=== PATIENT | male | born 1950 | race Caucasian/White ===

== ENCOUNTER 2019-02-12 13:12 | Inpatient (IN) | payer OTHER, MEDICARE ==
[~2019-02-12] VITALS: Ht 185.4 cm; Wt 99.8 kg
--- NOTE | 2019-02-12 14:00 | NUR ---
Note Pt ambulated to room from admitting office with crutches. Pt's by his side. Pt admitted to room. Oriented to nursing routines and procedures at this time. Pt and his were shown how to use call light and room house phone. Pt given hospital gown to get into.
[2019-02-12 14:30] VITALS: BP_SYST 109
[2019-02-12] MEDS ORDERED: LOSA50TA3 PO (15:03)
[2019-02-12] MEDS ORDERED: HYDR12.55 PO (15:03)
[2019-02-12] MEDS ORDERED: FINA5TAB3 PO (15:03)
[2019-02-12] MEDS ORDERED: ATEN-41 PO (15:03)
[2019-02-12] MEDS ORDERED: SIMV40TA2 PO (15:03)
[2019-02-12] MEDS ORDERED: HYT1 PO (15:03)
[2019-02-12] MEDS ORDERED: ASPI-1155 PO (15:03)
[2019-02-12] MEDS ORDERED: POTA10TA21 PO (15:03)
[2019-02-12] MEDS ORDERED: ONDANSETRON HCL 4 MG/2 ML VIAL IM PRN (15:15)
[2019-02-12] MEDS ORDERED: ATENOLOL 25 MG TABLET(TENORMIN) PO ONE (15:15)
[2019-02-12] MEDS ORDERED: MORPHINE 4 MG/ML INJ. SYRINGE IVP PRN (15:15)
[2019-02-12] MEDS ORDERED: fentaNYL CITRATE/PF 100 MCG/2 ML AMP IVP PRN ×2 (15:30)
[2019-02-12] MEDS ORDERED: ONDANSETRON HCL 4 MG/2 ML VIAL IVP PRN (15:30)
[2019-02-12 15:50] LABS: BASOPHILS % (AUTO) 0.6 % (0.0-2.0); EOSINOPHILS # (AUTO) 0.2 K/uL (0.0-0.4); EOSINOPHILS % (AUTO) 2.6 % (0.0-4.0); HEMATOCRIT 38.6 % (36-54); HEMOGLOBIN 13.1 g/dL (14.0-18.0); LYMPHOCYTES # (AUTO) 1.4 K/uL (1.0-5.5); LYMPHOCYTES % (AUTO) 22.7 % (20.5-51.5); MEAN CORPUSCULAR HEMOGLOBIN 31 pg (27-31); MEAN CORPUSCULAR HGB CONC 34 % (32-36); MEAN CORPUSCULAR VOLUME 92 fL (79.0-98.0); MONOCYTES # (AUTO) 0.6 K/uL (0.0-1.0); MONOCYTES % (AUTO) 9.7 % (1.7-9.3); NEUTROPHILS # (AUTO) 4.1 K/uL (1.8-7.7); NEUTROPHILS % (AUTO) 64.4 % (40.0-70.0); PLATELET COUNT (AUTO) 238 K/uL (130-430); RED BLOOD CELL COUNT(AUTO) 4.22 MIL/uL (4.2-6.2); RED CELL DISTRIBUTION WIDTH 14.3 % (9.0-15.0); WHITE BLOOD COUNT (AUTO) 6.3 K/uL (4.8-10.8)
[2019-02-12 15:57] LABS: CALCIUM 9.4 mg/dL (8.4-11.0); CREATININE 1.51 mg/dL (0.55-1.30); POTASSIUM 3.9 mmol/L (3.5-5.1)
--- NOTE | 2019-02-12 16:00 | NUR ---
Note Pt in hospital gown and has IV in left hand. Pt's admission assessment completed at this time. Dr Diego put in orders for lab draws and UA. EKG was also done at this time. Consent signed and questions/concerns were answered at this time. Call light within reach.
[2019-02-12 16:01] LABS: ALBUMIN 3.2 g/dL (3.4-4.8); TOTAL BILIRUBIN 0.8 mg/dL (0.0-1.0)
[2019-02-12 16:03] LABS: BILIRUBIN,URINE NEGATIVE (NEGATIVE); BLOOD, URINE NEGATIVE (NEGATIVE); CLARITY/URINE CLEAR (CLEAR); COLOR,URINE YELLOW (YELLOW); GLUCOSE,URINE NEGATIVE (NEGATIVE); KETONES,URINE NEGATIVE (NEGATIVE); LEUKOCYTE ESTERASE ,URINE NEGATIVE (NEGATIVE); NITRITE, URINE NEGATIVE (NEGATIVE); PH,URINE 5.5 (5.0-8.0); PROTEIN URINE NEGATIVE (NEGATIVE); UROBILINOGEN,URINE 0.2 (0.2-1.0)
[2019-02-12 16:05] VITALS: BP_SYST 109
[2019-02-12] MEDS ORDERED: MIDAZOLAM HCL 5 MG/5 ML VIAL IVP ONE (16:05)
[2019-02-12] MEDS ORDERED: BUPIVACAINE /DEX PF 0.75% SPINAL 2 ML AMP INJ ONE (16:05)
[2019-02-12] MEDS ORDERED: LR 1,000 ML IV.SOLN IV ONE (16:05)
[2019-02-12] MEDS ORDERED: LEVOFLOXACIN 500 MG/D5W 100 ML PIGGYBACK IV ONE (16:05)
[2019-02-12] MEDS ORDERED: NS IRRIG SOLN 1000 ML IR ONE (16:05)
--- NOTE | 2019-02-12 16:20 | NUR ---
Note Pt was given CHG bath and labs and UA results printed and in chart at this time. Dr Mosquera (anesthesiologist) spoke to pt at bedside and answered questions/concerns. Surgical consent signed and in chart as well. Pt off the floor to OR at this time via bed. Pt's went to OR waiting room.
[2019-02-12] MEDS ORDERED: KCL 20 mEq in D5/0.45NS 1000mL 1,000 ML IV SCH (16:30)
[2019-02-12] MEDS ORDERED: HYDROcodone/ACETAMIN 7.5-325 MG TAB PO PRN (17:30)
[2019-02-12] MEDS: LEVOFLOXACIN 500 MG/D5W 100 ML IV SCH (18:29)
--- NOTE | 2019-02-12 18:50 | NUR ---
Note Pt returned from PACU at 1810. Pt AAOX4. Right foot wrapped in surgical wrap. Sensation not present from waist down due to spinal anesthesia given. Pt denies any pain/discomfort at this time. Pt's IV in left forearm intact and patent. IVPB antibiotic was started (Levaquin IVPB). Pt sitting up in bed and eating his regular dinner. No SOB/resp distress noted at this time. Pt watching television. Pt was checked on q1' and PRN all shift for needs and care. Call light within reach.
[2019-02-12 19:00] VITALS: BP_SYST 123
--- NOTE | 2019-02-12 19:15 | NUR ---
change of shift.pt.presents s/p surgery;02/12/19.pt.received an epidural.to provide neuro-assessment.pt.presents quiescent affect;calm.viewing tv programing.initial assessment;neuro;pt.stated the lower extremities are numb/cannot provided movement. tactile stimulation;pt.stated he cannot feel the tactile stimulation;skin temp;warm hue;pink;pale.iv acces intact;lr iv fluids infusing.call light/telephone w/in the reach of the pt.urinal w/in reach of the pt.v/s per s/p surgery protocol in progress.
[2019-02-12 20:00] VITALS: BP_SYST 123
--- NOTE | 2019-02-12 20:00 | NUR ---
pt.assessed.v/s assessed;values w/in normal limits.no c/o pain.neuro-assessment attended to.i have inspected the urinal;clean. pt.sated he cannot feel the groin area.to continue assessment of the capacity to urinate.iv access intact;patent.iv fluids infusing. general; status stable.respiratory status stable;unlabored @room air;02-sat%=100%.pt.assessed for cleanliness.pt.repositioned. call light/telephone placed w/in the reach of the pt.
--- NOTE | 2019-02-12 21:00 | NUR ---
2100p medications administered.i have inspected the urinal;clean.i inquired if the pt.is urinating.pt.stated;no,he has not urinated.
[2019-02-12] MEDS: TERAZOSIN HCL 5 MG CAPSULE (HYTRIN) PO SCH (21:42)
[2019-02-12] MEDS: SIMVASTATIN 40 MG TABLET PO SCH (21:42)
[2019-02-12] MEDS: NORMAL SALINE 5 ML DISP.SYRIN IVF SCH (21:42)
--- NOTE | 2019-02-12 22:00 | NUR ---
pt.assessed.pt.presents quiescent affect;calm,.viewing tv programming.pt.stated he is regaining the capacity to feel tactile stimulation and provide digit movement;rt.foot.pt sat he cannot feel the groin area.i have attended to bladder scan.pt.presents urinary retention:1.2l;volume. i am to page ;surgeon.re;urinary retention status.call light/telephone placed w/in the reach of the pt.
--- NOTE | 2019-02-12 22:30 | NUR ---
;surgeon has returned the page.i apprised of the pt's status;urinary retention;volume;1.2l. has ordered delaney catheter;indwelling to be placed.
--- NOTE | 2019-02-12 23:00 | NUR ---
i have placed the delaney catheter;indwelling w/out obstruction;urine return;content present w/in collection chamber corresponding to the urinary retention volume.
--- NOTE | 2019-02-13 | NUR ---
pt.assessed.v/s assessed.values w.in normal limits.i have assessed the delaney catheter;intact;patent;urine content present. neuro-assessment attended to.pt.capable to provide movement of the lower extremities.no c/o pain.general status stable. respiratory status stable@room air.pt.capable to reposition self.call light/telephone placed w/in the reach of the pt.
[2019-02-13 00:39] VITALS: BP_SYST 121
--- NOTE | 2019-02-13 02:00 | NUR ---
pr.assessed.delaney catheter assessed;intact;patent;urine content present.pt.presents quiescent affect;calm,somnolent. iv acces intact;locked;pt.capable to reposition self.general status stable.respiratory status stable.call light/telephone w/in the reach of the pt.
--- NOTE | 2019-02-13 04:00 | NUR ---
pt.assessed.delaney catheter assessed;intact;patent.urine content presents.iv access;intact;patent.pt.presents quiescent affect, calm,somnolent.general status stable.respiratory status stale;unlabored @room air.pt.capable to reposition self.call light/telephone placed w/in reach of the pt.
[2019-02-13] MEDS: NORMAL SALINE 5 ML DISP.SYRIN IVF SCH ×3 (05:51→22:15)
--- NOTE | 2019-02-13 06:56 | NUR ---
pt.assessed.delaney cath assessed;intact;patent;urine content presents.pt.capable to provide full movement digits;x5 rt.foot;leg and the let foot/leg.pt.remains bedrest status.iv access; intact;patent.general status stable.respiratory status stable;call light/telephone w/in the reach of the pt.
--- NOTE | 2019-02-13 07:15 | NUR ---
has right foot dressing dry and intact. with bilateral scds in placed.
--- NOTE | 2019-02-13 07:15 | NUR ---
received report at the bedside from anjelica nurse. patient aaox 4. breathing even and unlabored. abdomen soft and non distended. has iv access on the left forearm #20. saline lock. bed in low position, alarmed and locked. call lights within reach. instructed to call for assistance. fall/safety precaution maintained. vitals signs stable and afebrile.
--- NOTE | 2019-02-13 08:00 | NUR ---
had dressing on the rt foot dry and intact. with scds on both legs.
--- NOTE | 2019-02-13 09:13 | NUR ---
due medication given at this time. with water.
[2019-02-13] MEDS: FINASTERIDE 5 MG TABLET (PROSCAR) PO SCH (09:14)
[2019-02-13] MEDS: LOSARTAN POTASSIUM 50 MG TABLET (COZAAR) PO SCH (09:15)
[2019-02-13] MEDS: HYDROCHLOROTHIAZIDE 12.5 MG CAPSULE (HCTZ) PO SCH (09:15)
[2019-02-13 11:40] VITALS: BP_SYST 125
--- NOTE | 2019-02-13 12:00 | NUR ---
HAD LUNCH TRAY 100% FOOD CONSUMED.
--- NOTE | 2019-02-13 15:03 | NUR ---
PATIENT RESTING AT THIS TIME. NO PAIN NOR ACUTE DISTRESS NOTED.
[2019-02-13 16:25] VITALS: BP_SYST 103
--- NOTE | 2019-02-13 16:33 | NUR ---
patient asleep at this time.
[2019-02-13] MEDS: LEVOFLOXACIN 500 MG/D5W 100 ML IV SCH (17:12)
--- NOTE | 2019-02-13 17:14 | NUR ---
levaquin iv hanged at this time. stable
--- NOTE | 2019-02-13 17:47 | NUR ---
patient had dinner tray. verbalized looks good at this time.
--- NOTE | 2019-02-13 18:16 | NUR ---
patient stable. no complained made so far no pain noted. both toes can wiggles. good pulses noted. no tingling or numbness noted on the leg and feet.
--- NOTE | 2019-02-13 19:30 | NUR ---
Opening Note Received patient awake, AOx4, resting in bed. No s/sx of distress. Non-labored breathing on room air. IV to LFA. San catheter drainage bag to gravity. Bed is locked to lowest position, bed alarm on, and call light w/in reach. Updated board and reviewed plan of care.
[2019-02-13 20:00] VITALS: BP_SYST 110
[2019-02-13] MEDS: SIMVASTATIN 40 MG TABLET PO SCH (22:11)
[2019-02-13] MEDS: TERAZOSIN HCL 5 MG CAPSULE (HYTRIN) PO SCH (22:15)
--- NOTE | 2019-02-14 00:20 | NUR ---
Rounds Patient was assisted to reposition. Neuro check on right foot done. Presently denies pain. Call light w/in reach.
--- NOTE | 2019-02-14 02:31 | NUR ---
Rounds Resting w/ eyes closed, non-labored breathing. Symmetrical rise and fall of chest. Safety precautions maintained, call light w/in reach.
[2019-02-14 02:54] VITALS: BP_SYST 117
[2019-02-14] MEDS: NORMAL SALINE 5 ML DISP.SYRIN IVF SCH ×3 (05:47→21:04)
[2019-02-14 06:09] LABS: BASOPHILS % (AUTO) 0.6 % (0.0-2.0); EOSINOPHILS # (AUTO) 0.2 K/uL (0.0-0.4); EOSINOPHILS % (AUTO) 2.7 % (0.0-4.0); HEMOGLOBIN 12.8 g/dL (14.0-18.0); LYMPHOCYTES # (AUTO) 1.6 K/uL (1.0-5.5); LYMPHOCYTES % (AUTO) 20.9 % (20.5-51.5); MEAN CORPUSCULAR HEMOGLOBIN 31 pg (27-31); MEAN CORPUSCULAR HGB CONC 34 % (32-36); MEAN CORPUSCULAR VOLUME 92 fL (79.0-98.0); MONOCYTES # (AUTO) 0.7 K/uL (0.0-1.0); MONOCYTES % (AUTO) 8.8 % (1.7-9.3); PLATELET COUNT (AUTO) 206 K/uL (130-430); RED BLOOD CELL COUNT(AUTO) 4.14 MIL/uL (4.2-6.2); RED CELL DISTRIBUTION WIDTH 14.4 % (9.0-15.0); WHITE BLOOD COUNT (AUTO) 7.5 K/uL (4.8-10.8)
--- NOTE | 2019-02-14 06:30 | NUR ---
IV PLACEMENT: IV no longer patent, infiltrated. New # 20G gauge angiocath placed to LFA. Use of asceptic technique. Opsite placed over site. Blood return noted. Flushed with 10cc of normal saline. Patient tolerated
--- NOTE | 2019-02-14 07:15 | NUR ---
received patient aaox 4. breathing even and unlabored. abdomen soft and non distended. has iv access on the left forearm #20. saline lock. rt foot has dressing on it. dry/intact. no bleeding nor pain nor acute distress noted. bed low position, alarmed and locked. call lights within reach. will continue to monitor patients status.
--- NOTE | 2019-02-14 07:36 | NUR ---
Closing note Needs met throughout shift, patient stable. No s/sx of distress. Endorsed report.
--- NOTE | 2019-02-14 08:00 | NUR ---
still has delaney catheter in placed and draining clear yellow urine.
[2019-02-14 08:25] VITALS: BP_SYST 124
[2019-02-14] MEDS: FINASTERIDE 5 MG TABLET (PROSCAR) PO SCH (08:50)
--- NOTE | 2019-02-14 08:50 | NUR ---
patient assisted to the bathroom still with delaney catheter draining well.
[2019-02-14] MEDS: LOSARTAN POTASSIUM 50 MG TABLET (COZAAR) PO SCH (08:51)
[2019-02-14] MEDS: HYDROCHLOROTHIAZIDE 12.5 MG CAPSULE (HCTZ) PO SCH (08:51)
--- NOTE | 2019-02-14 08:55 | NUR ---
due medication given at this time.
--- NOTE | 2019-02-14 11:00 | NUR ---
assisted to the bathroom and had bowel movement today.
--- NOTE | 2019-02-14 14:00 | NUR ---
resting and family at the bedside. awaiting for dr olivera to come
[2019-02-14 14:05] VITALS: BP_SYST 111
[2019-02-14 15:26] VITALS: BP_SYST 105
--- NOTE | 2019-02-14 17:11 | NUR ---
called dr jarod stephens to know, what time he is coming to see the patient.
[2019-02-14] MEDS: LEVOFLOXACIN 500 MG/D5W 100 ML IV SCH (17:49)
--- NOTE | 2019-02-14 18:29 | NUR ---
awaiting for dr olivera to come and see if the patient will be discharge soon.
[2019-02-14 20:00] VITALS: BP_SYST 111
--- NOTE | 2019-02-14 20:00 | NUR ---
Incentive Spirometer Patient was educated on use of IS and he demonstrated inspiration of 2700 ml.
--- NOTE | 2019-02-14 20:19 | NUR ---
Dr. Johnathon Diego at bedside to see patient and performed dressing change.
[2019-02-14] MEDS: SIMVASTATIN 40 MG TABLET PO SCH (21:02)
[2019-02-14] MEDS: TERAZOSIN HCL 5 MG CAPSULE (HYTRIN) PO SCH (21:03)
--- NOTE | 2019-02-14 23:30 | NUR ---
Awake Patient is awake for V/S. Neurovascular checks done. Patient denies pain. IV is SL. No further needs at this time. Call light w/in reach.
[2019-02-15 01:24] VITALS: BP_SYST 112
--- NOTE | 2019-02-15 02:48 | NUR ---
Rounds Patient is resting w/ eyes open. He requested a new pitcher of water and it was provided. Denies pain, no s/sx of distress. Will monitor.
--- NOTE | 2019-02-15 04:30 | NUR ---
Rounds Patient is awake, neurovascular check done. Patient requested water pitcher and it was provided.
[2019-02-15 06:48] LABS: BASOPHILS % (AUTO) 0.5 % (0.0-2.0); EOSINOPHILS # (AUTO) 0.3 K/uL (0.0-0.4); EOSINOPHILS % (AUTO) 3.2 % (0.0-4.0); HEMATOCRIT 37.6 % (36-54); LYMPHOCYTES # (AUTO) 2.1 K/uL (1.0-5.5); LYMPHOCYTES % (AUTO) 23.3 % (20.5-51.5); MEAN CORPUSCULAR HEMOGLOBIN 32 pg (27-31); MEAN CORPUSCULAR HGB CONC 35 % (32-36); MEAN CORPUSCULAR VOLUME 92 fL (79.0-98.0); MONOCYTES # (AUTO) 0.7 K/uL (0.0-1.0); MONOCYTES % (AUTO) 7.9 % (1.7-9.3); NEUTROPHILS % (AUTO) 65.1 % (40.0-70.0); PLATELET COUNT (AUTO) 199 K/uL (130-430); RED BLOOD CELL COUNT(AUTO) 4.11 MIL/uL (4.2-6.2); RED CELL DISTRIBUTION WIDTH 14.6 % (9.0-15.0); WHITE BLOOD COUNT (AUTO) 9.1 K/uL (4.8-10.8)
[2019-02-15] MEDS: NORMAL SALINE 5 ML DISP.SYRIN IVF SCH (06:48)
--- NOTE | 2019-02-15 07:10 | NUR ---
Nutrition Update Ace Scale 17 noted. Pt admitted for Right Foot Abscess Diet: Regular BMI: 29 kg/m2 RD to follow per nutrition care standards.
--- NOTE | 2019-02-15 07:30 | NUR ---
Closing note Needs met throughout shift, patient stable. No s/sx of distress. Endorsed report.
--- NOTE | 2019-02-15 07:34 | NUR ---
rn opening note Report was endorsed by night nurse. Patient is awake and alert sitting up in bed no signs of any distress. Patient educated admissions evaluator light for assistance. Patient has call light with him. Patient has no other needs at this time. will continue to monitor.
[2019-02-15 07:53] VITALS: BP_SYST 125
[2019-02-15 08:20] LABS: ERYTHROCYTE SEDIMENTATION RATE 22 MM/HR (0-15)
[2019-02-15] MEDS: FINASTERIDE 5 MG TABLET (PROSCAR) PO SCH (09:27)
[2019-02-15] MEDS: HYDROCHLOROTHIAZIDE 12.5 MG CAPSULE (HCTZ) PO SCH (09:27)
[2019-02-15] MEDS: LOSARTAN POTASSIUM 50 MG TABLET (COZAAR) PO SCH (09:28)
--- NOTE | 2019-02-15 09:31 | NUR ---
Medication Patients scheduled medicating given as ordered. Patient educated information systems operator light for assistance call light is with patient. Patient has all safety precautions in place. no other needs at this time. will continue to monitor.
--- NOTE | 2019-02-15 10:17 | NUR ---
Dr.Carter ANSARI at [facility], [place] to remove delaney catheter. Patient can be discharged wants patient voided. Patients dressing change done by Dr. Diego. Patient educated on need to void. Addendum: 02/15/19 at 1029 by Qian Alarcon RN delaney catheter removed , catheter intact, provided patient with urinal. also has call light to use for assistance. Patient has no other needs at this time. will continue to monitor.
[2019-02-15 11:38] VITALS: BP_SYST 118
--- NOTE | 2019-02-15 11:40 | NUR ---
Voided Patient voided. Patient assisted to bathroom and back to bed. Patient educated on discharge,called and left message for case management for order of home health to be faxed to Dr. Renteria nurse for wound care. Addendum: 02/15/19 at 1255 by Qian Alarcon RN Spoke with Case management , states that is using his own nurse, therefore Dr. Diego will have to obtain the home health order directly from Dr. Diego. Patient made aware and verbalized understanding.
[2019-02-15 11:51] VITALS: BP_SYST 118
--- NOTE | 2019-02-15 13:59 | NUR ---
HOME HEALTH NURSE ARRANGEMENT SPOKE TO STACEY BUS PERSON MADE AWARE THAT DR THORNTON WROTE A DISCHARGE ORDER FOR HOME HEALTH NURSE RE WOUND CARE. OF PATIENT STATED THAT PATIENT HAS A HOME HEALTH NURSE ALREADY BUT SERVICE WILL IN 2 DAYS. [facility] NEEDS RENEWAL OF ORDER SO THEY CAN CONTINUE TO SEE PT.. STACEY WILL CALL AND FAX ORDER TO [facility] P# [phone] ( CICI JAHAIRA) FAX#[phone]. PATIENT CAN GO HOME.
--- NOTE | 2019-02-15 14:00 | NUR ---
DC Planning: per KVNG Fernández the pt already has A home health services prior admitting to . The pt wants to continue with same HH. CASIMIRO faxed dc order to [facility] fax# [phone], tel # [phone]. Addendum: 02/15/19 at 1617 by Syed Camejo RN Updated casimiro Gamboa at [facility] the pt is to be discharged today. Faxed dc order and pt 's info to petty# [phone], Bee # [phone]. The above fax# was not working.
--- NOTE | 2019-02-15 14:15 | NUR ---
Discharge Patient educated on discharge paperwork. Patients IV catheter removed, catheter intact, applied gauze and tape to insertion site. Patient ID band removed. Patient given written script. Patient is aware of home health. Patient has no further questions. Patient wheeled, via wheelcahir to private auto. Spouse here to black pickler patient. Familia has all belongings.
--- NOTE | 2019-02-24 14:03 | NUR ---
DISCHARGE FOLLOW UP PHONE CALL CASIMIRO/ MARIA ELENA ZHONG PHONED PATIENT, . PATIENT IS FEELING A LOT BETTER. HE HAS NO QUESTIONS ABOUT DISCHARGE INSTRUCTIONS. HE IS TAKING HIS MEDICATIONS INSTRUCTED. ALREADY HAD HIS APPOINTMENT WITH HIS PCP, EVERYTHING WENT WELL. HE HAS NO QUESTIONS OR CONCERNS. HE WILL CALL HOSPITAL IF HE HAS ANY QUESTIONS IN THE FUTURE.
== END 2019-02-15 14:15 | disposition home health service (06) | DRG 571 ==
LOC: SMU 14:05
PROVIDERS: ADMIT Surgery; ATTEND Surgery
PROC: 0JBQ0ZZ Excision of Right Foot Subcutaneous Tissue and Fascia, Open Approach (ICD-10-PCS; 2019-02-12)
PROC: 0JBQ0ZZ Excision of Right Foot Subcutaneous Tissue and Fascia, Open Approach (ICD-10-PCS; principal; 2019-02-12 16:30)
DX: L02.611 Cutaneous abscess of right foot (principal); R65.10 Systemic inflammatory response syndrome (SIRS) of non-infectious origin without acute organ dysfunction; E78.00 Pure hypercholesterolemia, unspecified; I10 Essential (primary) hypertension; M19.011 Primary osteoarthritis, right shoulder; N40.0 Benign prostatic hyperplasia without lower urinary tract symptoms; R73.03 Prediabetes; Z87.442 Personal history of urinary calculi; Z88.2 Allergy status to sulfonamides; N18.3 Chronic kidney disease, stage 3 (moderate)
CPT/HCPCS: 36415; 80053; 81003; 85025; 85651-TC; 86140; 87070; 87070-TC; 87075-TC; 87081; 93005; 94010; J1956; J2250; J3490; J7120